=== PATIENT | male | born 1960 | race Caucasian/White ===

== ENCOUNTER 2021-10-14 09:22 | Outpatient (CLI) | payer BC, SELFPAY ==
--- NOTE | ~2021-10-14 | CT_ITS ---
EXAMINATION: CT brain wo con DATE: 10/14/2021 09:50 INDICATION: New daily persistent headache. Dizziness. TECHNIQUE: Computed tomography (CT) of the head was performed without intravenous contrast. The mA wa s adjusted according to patient size. Iterative reconstruction technique was employed. Exam dose: 60 5.33 mGy-cm total exam DLP. COMPARISON: None FINDINGS: No intracranial mass lesion or hemorrhage or cerebrovascular accident. No midline shift or mass effect. Normal ventricular size. Normal silva-white matter differentiation. No subdural or epidur al hematoma. There is minimal mucoperiosteal thickening of the frontal and right sinuses and patchy soft tissue th ickening of the ethmoid air cells. The mastoid air cells are normally developed and aerated. No fracture or bone destruction of the cranial vault.. IMPRESSION: No intracranial abnormality Patchy soft tissue thickening of the ethmoid air cells bilaterally and minimal mucosal periosteal thi ckening of the frontal and right sphenoid sinus Reviewed, dictated and finalized at [facility]. Reviewed, dictated and finalized at [facility]. IMPRESSION: No intracranial abnormality Patchy soft tissue thickening of the ethmoid air cells bilaterally and minimal mucosal periosteal thickening of the frontal and right sphenoid sinus
== END 2021-10-14 09:23 | disposition home or self-care (01) ==
LOC: CHSIMG 09:24
PROVIDERS: PCP Physician Assistant; Visit Provider Physician Assistant
DX: G44.52 New daily persistent headache (NDPH) (principal)
CPT/HCPCS: 70450